=== PATIENT | male | born 1975 | race American Indian/Alaskan Native ===

== ENCOUNTER 2017-07-16 17:36 | Inpatient (IN) | payer MEDICAID, OTHER ==
[2017-07-16 17:36] VITALS: BMI 39.5
--- NOTE | 2017-07-16 18:04 | C.PDOC ---
History Of Present Illness 41 year old male with PMHx of HTN presents to the ED c/o sudden severe vision deterioration associated with headache that have been going on for the past 5 days. Patient states his symptoms occurred after taking the first dose of a blood pressure medication he does not recall the name of. Patient went to Dr. Connelly's office today was not evaluated but referred here for evaluation. PMD: Jinny Connelly Time Seen by Provider: 07/16/17 17:49 Chief Complaint (Nursing): Weakness/Neurological Deficit History Per: Patient History/Exam Limitations: no limitations Onset/Duration Of Symptoms: Days Current Symptoms Are (Timing): Still Present Associated Symptoms Preceding Syncopal Episode: No Predromal Symptoms (Sudden Onset) Seizure Or Post-ictal Symptoms: None Possible Causative Factor(s): New Medications Fall Associated With With Symptoms: No Recent travel outside of the [place]: No Additional History Per: Patient Past Medical History Reviewed: Historical Data, Nursing Documentation, Vital Signs Vital Signs: Last Vital Signs Temp 98.3 F 07/16/17 19:42 Pulse 71 07/16/17 19:42 Resp 20 07/16/17 19:42 BP 147/90 07/16/17 19:42 Pulse Ox 98 07/16/17 20:40 - Medical History PMH: HTN Denies: Chronic Kidney Disease Surgical History: No Surg Hx Family History: States: Unknown Family Hx - Social History Hx Alcohol Use: Yes Hx Substance Use: No - Immunization History Hx Tetanus Toxoid Vaccination: No Hx Influenza Vaccination: No Hx Pneumococcal Vaccination: No Review Of Systems Constitutional: Negative for: Fever, Chills Eyes: Positive for: Vision Change Cardiovascular: Negative for: Chest Pain, Palpitations Respiratory: Negative for: Shortness of Breath Gastrointestinal: Negative for: Abdominal Pain Skin: Negative for: Rash Neurological: Negative for: Weakness, Numbness Physical Exam - Physical Exam Appears: Non-toxic, No Acute Distress, Other (obese black male ) Skin: Normal Color, Warm, Dry Head: Atraumatic, Normacephalic Eye(s): bilateral: Other (Retinal exam normal; Complete loss of vision in the left visual landeros, consistent with left homonymous hemianopia) Nose: No Discharge Oral Mucosa: Moist Neck: Normal ROM, Supple Chest: Symmetrical Cardiovascular: Rhythm Regular, No Murmur Respiratory: Normal Breath Sounds, No Rales, No Rhonchi, No Wheezing Gastrointestinal/Abdominal: Soft, No Tenderness, No Guarding, No Rebound Extremity: Normal ROM, No Tenderness, No Swelling Neurological/Psych: Oriented x3, Normal Motor, Normal Sensation Gait: Steady ED Course And Treatment - Laboratory Results Result Diagrams: 07/16/17 18:01 07/16/17 18:01 O2 Sat by Pulse Oximetry: 98 (On RA) Pulse Ox Interpretation: Normal - Radiology CXR: Interpreted by Me, Viewed By Me CXR Interpretation: Yes: Cardiomegaly - CT Scan/US CT head Other Rad Studies (CT/US): Read By Radiologist, Radiology Report Reviewed CT/US Interpretation: IMPRESSION: No acute intracranial findings. Subacute infarction of the right CHARGE WEIGHER territory, no hemorrhagic. transformation. Chronic infarct of the right frontal temporal watershed region. No new episodes of. infarction site CTA Neck Other Rad Studies (CT/US): Read By Radiologist, Radiology Report Reviewed CT/US Interpretation: IMPRESSION: Unremarkable neck CTA. No carotid stenosis or occlusion. No thrombosis. Basilar artery and. vertebral arteries appear unremarkable. CT head/neck Other Rad Studies (CT/US): Read By Radiologist, Radiology Report Reviewed CT/US Interpretation: IMPRESSION: No aneurysm or acute occlusion. Partial thrombus or narrowing associate with the right proximal. CHARGE WEIGHER territory. Subacute infarction without hemorrhagic transformation right CHARGE WEIGHER territory. Chronic infarct of the right hemisphere frontal region as above. - Physician Consult Information Outcome Of Conversation: 1940: discussed w/ PMD sarah Shahid to admit. NIHSS Stroke Scale 2 - Date/Time Evaluation Performed Date Performed: 07/16/17 Time Performed: 18:00 - How Severe is the Stroke Level of Consciousness: 1=Drowsy LOC to commands: 0=Obeys both correctly Best Gaze: 0=Normal Visual: 2=Complete hemianopia Facial: 0=Normal Motor Arm - Left: 0=No drift Motor Arm - Right: 0=No drift Motor Leg - Left: 0=No drift Motor Leg - Right: 0=No drift Limb Ataxia: 0=Absent Sensory: 0=Normal Best Language: 0=No aphasia Dysarthia: 0=Normal articulation Extinction & Inattention (Neglect): 0=Normal, no object rTPA Inclusion/Exclusion - Refusal of Treatment Patient Refused Treatment: No - Inclusion Criteria for Altepase Patient is 18 years or Older: Yes The Clinical Diagnosis of Ischemic Stroke That is Causing a Potentially Disabling Neurological Deficit: Yes Time of Onset is Well Established to be Less Than 270 Minute Before Treatment Would Begin: No Risk/Benefit Discussed With Patient/Family Member Present: No - Exclusion Criteria for Altepase Uncontrolled Hypertension at Time of Treatment (Systolic BP above 185 or Diastolic BP above 110 mmHg): No Medical Decision Making Medical Decision Making: Initial Impression: visual deterioration Plan: * CT head * CT neck * EKG * Labs * CXR * IV fluids * UA Impression: subacute R CHARGE WEIGHER infarct- prob subacute from 5 days ago when pt had sudden JEAN and vision loss. 19:50 - Spoke with neurologist youth accommodation support worker Dr. Pa regarding the patient, informed her he will be admitted to Dr. Connelly' service. Disposition Doctor Will See Patient In The: Hospital Counseled Patient/Family Regarding: Studies Performed, Diagnosis - Disposition Disposition: HOSPITALIZED Disposition Time: 19:46 Condition: GOOD - Clinical Impression Clinical Impression: Hx of ischemic right CHARGE WEIGHER stroke - Scribe Statement The provider has reviewed the documentation as recorded by the Scribjoanne Knight All medical record entries made by the Scribe were at my direction and personally dictated by me. I have reviewed the chart and agree that the record accurately reflects my personal performance of the history, physical exam, medical decision making, and the department course for this patient. I have also personally directed, reviewed, and agree with the discharge instructions and disposition.
[2017-07-16] MEDS ORDERED: Iodixanol 320 MG/ML 100 ML BOTTLE IV ONE (18:09)
[2017-07-16 18:10] LABS: BASO # 0.1 K/uL (0.0-0.2); EOS # 0.1 K/uL (0.0-0.7); EOS % 1.5 % (0.0-4.0); HEMOGLOBIN 13.7 g/dL (12.0-18.0); LYMPH # 1.6 K/uL (1.0-4.3); LYMPH % 30.4 % (20.0-40.0); MEAN CELL VOLUME 83.7 fL (80.0-94.0); MEAN CORPUSCULAR HEMOGLOBIN 27.2 pg (27.0-31.0); MEAN CORPUSCULAR HGB CONC 32.5 g/dL (33.0-37.0); MEAN PLATELET VOLUME 7.9 fL (7.2-11.7); MONO # 0.5 K/uL (0.0-0.8); MONO % 8.8 % (0.0-10.0); NEUT % 58.3 % (50.0-75.0); NRBC % 0.1 % (0.0-2.0); RBC 5.03 Mil/uL (4.40-5.90); RED CELL DISTRIBUTION WIDTH 13.2 % (11.5-14.5); WHITE BLOOD COUNT 5.2 K/uL (4.8-10.8)
[2017-07-16 18:13] LABS: PROTHROMBIN TIME 11.3 SECONDS (9.7-12.2)
[2017-07-16 18:16] LABS: ALB/GLOB RATIO 1.1 (1.0-2.1); ALBUMIN 3.8 g/dL (3.5-5.0); ALT/SGPT 18 U/L (21-72); AST/SGOT 17 U/L (17-59); BLOOD UREA NITROGEN 12 mg/dL (9-20); CALCIUM 8.6 mg/dl (8.6-10.4); GFR AFRICAN-AMERICAN > 60; GFR NON-AFRICAN AMERICAN 56; HDL CHOLESTEROL 35 mg/dL (30-70)
[2017-07-16 18:27] LABS: LDL CHOLESTEROL 79 mg/dL (0-129)
[2017-07-16 18:39] LABS: URINE BILIRUBIN NEGATIVE (NEGATIVE); URINE BLOOD NEGATIVE (NEGATIVE); URINE CLARITY Clear (Clear); URINE COLOR Yellow (YELLOW); URINE GLUCOSE (UA) 1+ mg/dL (Normal); URINE LEUKOCYTE ESTERASE NEG Leu/uL (Negative); URINE PROTEIN NEGATIVE (NEGATIVE); URINE UROBILINOGEN NORMAL mg/dL (0.2-1.0)
[2017-07-16 18:50] LABS: BARBITURATES, UR NEGATIVE (NEGATIVE); BENZODIAZEPINES, UR NEGATIVE (NEGATIVE); OPIATES, UR NEGATIVE (NEGATIVE)
[2017-07-16] MEDS ORDERED: Sodium Chloride 0.9% 1,000 ML ONE (18:56)
[2017-07-16] MEDS: Sodium Chloride 0.9% 1,000 ML IV SCH (19:00)
[2017-07-16 19:12] LABS: PHENCYCLIDINE, UR NEGATIVE (NEGATIVE)
[2017-07-17] MEDS: Sodium Chloride 0.9% 1,000 ML IV SCH (02:44)
--- NOTE | 2017-07-17 09:37 | CP.PCM.CON ---
History of Present Illness - History of Present Illness History of Present Illness: 41 yr old male with no known pmh who came in to [facility], with chief complaint of headache and blurriness of vision for several days. Headache is frontal, 8/10 with no photophobia, no vomiting, and has been present for several days. 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 PMH/PSH: as above, no known past medical history noted. FH/SH: non contributory All: nkda. on exam: AAOX3 .pupils 3mm-2mm with light. EOMI. no nystagmus. Cn 2-12 normal. no gaze preference. left facial droop. tongue midline. motor: left mild drift. gait normal. sensory: normal, no deficits. mild left dysmetria. +2 dtr ul and ll bl. Toes downgoing, no clonus. Past Patient History - Infectious Disease Hx of Infectious Diseases: None - Past Medical History & Family History Past Medical History?: Yes - Past Social History Smoking Status: Current Some Days Smoker - CARDIAC Hx Cardiac Disorders: Yes Hx Hypertension: Yes - PULMONARY Hx Respiratory Disorders: No - NEUROLOGICAL Hx Neurological Disorder: No - HEENT Hx HEENT Problems: No - RENAL Hx Chronic Kidney Disease: No - ENDOCRINE/METABOLIC Hx Endocrine Disorders: Yes Hx Diabetes Mellitus Type 2: Yes - HEMATOLOGICAL/ONCOLOGICAL Hx Blood Disorders: No - INTEGUMENTARY Hx Dermatological Problems: Yes (CYST RT NECK) - MUSCULOSKELETAL/RHEUMATOLOGICAL Hx Musculoskeletal Disorders: No Hx Falls: No - GASTROINTESTINAL Hx Gastrointestinal Disorders: No - GENITOURINARY/GYNECOLOGICAL Hx Genitourinary Disorders: No - PSYCHIATRIC Hx Psychophysiologic Disorder: No Hx Substance Use: No - SURGICAL HISTORY Hx Surgeries: Yes Other/Comment: cyst removal from neck - ANESTHESIA Hx Anesthesia: Yes Meds Allergies/Adverse Reactions: Allergies Allergy/AdvReac Type Severity Reaction Status Date / Time No Known Allergies Allergy Verified 09/10/15 08:52 - Medications Medications: Current Medications Aspirin (Ecotrin) 325 mg PO DAILY [facility] Enoxaparin Sodium (Lovenox) 40 mg SC DAILY [facility] Home Med (Lisinopril/Hydrochlorothiazide [Lisinopril-Hctz 20-25 Mg Tab]) 1 tab PO DAILY [facility] Sodium Chloride (Sodium Chloride 0.9%) 1,000 mls @ 100 mls/hr IV .Q10H [facility] Last Admin: 07/17/17 02:44 Dose: 100 mls/hr Pneumococcal Polyvalent Vaccine (Pneumovax 23 Vaccine) 0.5 ml IM .ONCE ONE Stop: 07/18/17 10:01 Rosuvastatin Calcium (Crestor) 10 mg PO HS [facility] Last Admin: 07/16/17 22:29 Dose: 10 mg Results - Vital Signs Recent Vital Signs: Last Vital Signs Temp 98.0 F 07/17/17 07:55 Pulse 60 07/17/17 07:56 Resp 18 07/17/17 07:55 BP 127/72 07/17/17 07:55 Pulse Ox 97 07/17/17 07:55 - Labs Result Diagrams: 07/16/17 18:01 07/16/17 18:01 Labs: Laboratory Results - last 24 hr 07/16/17 07/16/17 07/16/17 17:46 18:01 18:01 WBC 5.2 RBC 5.03 Hgb 13.7 Hct 42.1 MCV 83.7 MCH 27.2 MCHC 32.5 L RDW 13.2 Plt Count 222 MPV 7.9 Neut % (Auto) 58.3 Lymph % (Auto) 30.4 [place] % (Auto) 8.8 Eos % (Auto) 1.5 Baso % (Auto) 1.0 Neut # (Auto) 3.0 Lymph # (Auto) 1.6 [place] # (Auto) 0.5 Eos # (Auto) 0.1 Baso # (Auto) 0.1 PT 11.3 INR 1.0 APTT 31 Sodium Potassium Chloride Carbon Dioxide Anion Gap BUN Creatinine Est GFR ( Amer) Est GFR (Non-Af Amer) POC Glucose (mg/dL) 155 H Random Glucose Hemoglobin A1c Calcium Total Bilirubin AST ALT Alkaline Phosphatase Troponin I Total Protein Albumin Globulin Albumin/Globulin Ratio Triglycerides Cholesterol LDL Cholesterol Direct HDL Cholesterol Urine Color Urine Clarity Urine pH Ur Specific [place] Urine Protein Urine Glucose (UA) Urine Ketones Urine Blood Urine Nitrate Urine Bilirubin Urine Urobilinogen Ur Leukocyte Esterase Urine WBC (Auto) Urine RBC (Auto) Urine Opiates Screen Urine Methadone Screen Ur Barbiturates Screen Ur Phencyclidine Scrn Ur Amphetamines Screen U Benzodiazepines Scrn U Oth Cocaine Metabols U Cannabinoids Screen 07/16/17 07/16/17 07/16/17 18:01 18:01 18:29 WBC RBC Hgb Hct MCV MCH MCHC RDW Plt Count MPV Neut % (Auto) Lymph % (Auto) [place] % (Auto) Eos % (Auto) Baso % (Auto) Neut # (Auto) Lymph # (Auto) [place] # (Auto) Eos # (Auto) Baso # (Auto) PT INR APTT Sodium 140 Potassium 4.2 Chloride 103 Carbon Dioxide 25 Anion Gap 17 BUN 12 Creatinine 1.4 Est GFR ( Amer) > 60 Est GFR (Non-Af Amer) 56 POC Glucose (mg/dL) Random Glucose 168 H Hemoglobin A1c 7.9 H Calcium 8.6 Total Bilirubin 0.4 AST 17 ALT 18 L Alkaline Phosphatase 73 Troponin I < 0.0120 Total Protein 7.2 Albumin 3.8 Globulin 3.4 Albumin/Globulin Ratio 1.1 Triglycerides 86 Cholesterol 130 LDL Cholesterol Direct 79 HDL Cholesterol 35 Urine Color Yellow Urine Clarity Clear Urine pH 5.0 Ur Specific [place] 1.019 Urine Protein Negative Urine Glucose (UA) 1+ H Urine Ketones Negative Urine Blood Negative Urine Nitrate Negative Urine Bilirubin Negative Urine Urobilinogen Normal Ur Leukocyte Esterase Neg Urine WBC (Auto) < 1 Urine RBC (Auto) < 1 Urine Opiates Screen Urine Methadone Screen Ur Barbiturates Screen Ur Phencyclidine Scrn Ur Amphetamines Screen U Benzodiazepines Scrn U Oth Cocaine Metabols U Cannabinoids Screen 07/16/17 07/17/17 18:29 06:07 WBC RBC Hgb Hct MCV MCH MCHC RDW Plt Count MPV Neut % (Auto) Lymph % (Auto) [place] % (Auto) Eos % (Auto) Baso % (Auto) Neut # (Auto) Lymph # (Auto) [place] # (Auto) Eos # (Auto) Baso # (Auto) PT INR APTT Sodium Potassium Chloride Carbon Dioxide Anion Gap BUN Creatinine Est GFR ( Amer) Est GFR (Non-Af Amer) POC Glucose (mg/dL) 116 H Random Glucose Hemoglobin A1c Calcium Total Bilirubin AST ALT Alkaline Phosphatase Troponin I Total Protein Albumin Globulin Albumin/Globulin Ratio Triglycerides Cholesterol LDL Cholesterol Direct HDL Cholesterol Urine Color Urine Clarity Urine pH Ur Specific [place] Urine Protein Urine Glucose (UA) Urine Ketones Urine Blood Urine Nitrate Urine Bilirubin Urine Urobilinogen Ur Leukocyte Esterase Urine WBC (Auto) Urine RBC (Auto) Urine Opiates Screen Negative Urine Methadone Screen Negative Ur Barbiturates Screen Negative Ur Phencyclidine Scrn Negative Ur Amphetamines Screen Negative U Benzodiazepines Scrn Negative U Oth Cocaine Metabols Negative U Cannabinoids Screen Negative Assessment & Plan - Assessment and Plan (Free Text) Assessment: 41 yr old male with multiple 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 I suspect he may have carotid disease, but will conduct full stroke workup. PLan: 1. Lipid profile normal..no statins. 2. Echo with bubble study. 3. physical therapy 4. start aspirin 325 mg po daily. 5. Control blood pressure 6. antithrombin 3, fibrinogen, factor 5 leiden, 7 .MRi Brain without alexis. Thank you for this interesting consult. MD Ann, DPN
[2017-07-17] MEDS ORDERED: Enoxaparin 150 mg Syringe SC SCH (10:00)
[2017-07-17] MEDS ORDERED: LISINOPRIL PO SCH (10:00)
[2017-07-17] MEDS ORDERED: HYDROCHLOROTHIAZIDE PO SCH (10:00)
[2017-07-17] MEDS ORDERED: Aspirin 325 mg EC Tablets PO SCH (10:00)
[2017-07-17] MEDS ORDERED: METFORMIN PO SCH (10:00)
[2017-07-17] MEDS: Enoxaparin 40 mg Syringe SC SCH (10:19)
--- NOTE | 2017-07-17 10:51 | CT ---
PROCEDURE: CT HEAD WITHOUT CONTRAST. HISTORY: JEAN, vision deterioration x 3 days COMPARISON: None available. TECHNIQUE: Axial computed tomography images were obtained through the head/brain without intravenous contrast. Radiation dose: Total exam DLP = 995.80 mGy-cm. This CT exam was performed using one or more of the following dose reduction techniques: Automated exposure control, adjustment of the mA and/or kV according to patient size, and/or use of iterative reconstruction technique. FINDINGS: HEMORRHAGE: No intracranial hemorrhage. BRAIN: No mass effect or edema. Probable subacute infarct right ELECTRONIC GLUING MACHINE OPERATOR territory involving the occipital lobe extending to the posterior temporal lobe. Old right frontotemporal/perisylvian infarct with encephalomalacia change. VENTRICLES: Unremarkable. No hydrocephalus. CALVARIUM: Unremarkable. PARANASAL SINUSES: Unremarkable as visualized. No significant inflammatory changes. MASTOID AIR CELLS: Unremarkable as visualized. No inflammatory changes. OTHER FINDINGS: None. IMPRESSION: Subacute right ELECTRONIC GLUING MACHINE OPERATOR territory infarcts. Old right frontotemporal perisylvian infarct with encephalomalacia change. No intracranial hemorrhage. Preliminary interpretation of this examination was reported by [facility] at 7:17 p.m. on 07/16/2017. There is concurrence of this report with the preliminary interpretation.
--- NOTE | 2017-07-17 11:12 | CARD ---
APPROVED REPORT EKG Measurement Heart [id number] <Conclusion> Normal sinus rhythm Normal ECG
--- NOTE | 2017-07-17 11:22 | CP.PCM.PN ---
Subjective - Date & Time of Evaluation Date of Evaluation: 07/17/17 Time of Evaluation: 09:10 - Subjective Subjective: Medicine progress note for Dr. Connelly's service: Patient seen and examined. Patient is a 41 year old male with PMHx HTN and diabetes who presented to the ED in the evening of 07/16/17 with complaint of headache and blurred vision for five days duration. Patient states he has been compliant with blood pressure medication. Patient states blurred vision is improved with movement. Patient also reports right-sided headache that is improving. Patient denies nausea or vomiting, sensitivity to light, neck pain or stiffness. Objective - Vital Signs/Intake and Output Vital Signs (last 24 hours): Temp Pulse Resp BP Pulse Ox 98.0 F 60 18 127/72 97 07/17/17 07:55 07/17/17 07:56 07/17/17 07:55 07/17/17 07:55 07/17/17 07:55 - Medications Medications: Current Medications Aspirin (Ecotrin) 325 mg PO DAILY [facility] Last Admin: 07/17/17 10:19 Dose: 325 mg Enoxaparin Sodium (Lovenox) 40 mg SC DAILY [facility] Last Admin: 07/17/17 10:19 Dose: 40 mg Hydrochlorothiazide (Hydrodiuril) 25 mg PO DAILY [facility] Last Admin: 07/17/17 10:19 Dose: 25 mg Lisinopril (Zestril) 20 mg PO DAILY [facility] Last Admin: 07/17/17 10:19 Dose: 20 mg Pneumococcal Polyvalent Vaccine (Pneumovax 23 Vaccine) 0.5 ml IM .ONCE ONE Stop: 07/18/17 10:01 Rosuvastatin Calcium (Crestor) 10 mg PO [facility] Last Admin: 07/16/17 22:29 Dose: 10 mg - Labs Labs: 07/16/17 18:01 07/16/17 18:01 PT 11.3 SECONDS (9.7-12.2) 07/16/17 18:01 INR 1.0 07/16/17 18:01 APTT 31 SECONDS (21-34) 07/16/17 18:01 - Constitutional Appears: Non-toxic, No Acute Distress - Head Exam Head Exam: ATRAUMATIC, NORMOCEPHALIC - Eye Exam Eye Exam: EOMI. absent: Nystagmus Pupil Exam: PERRL - ENT Exam ENT Exam: Mucous Membranes Moist - Respiratory Exam Respiratory Exam: Clear to Ausculation Bilateral, NORMAL BREATHING PATTERN - Cardiovascular Exam Cardiovascular Exam: +S1, +S2 - GI/Abdominal Exam GI & Abdominal Exam: Soft, Normal Bowel Sounds. absent: Tenderness - Extremities Exam Extremities Exam: Normal Inspection - Neurological Exam Neurological Exam: Alert, Awake, Oriented x3 Additional comments: mild droop left corner of mouth intact and equal sensation to face, upper and lower extremities left sided visual landeros deficit by confrontation Level of Consciousness: 0=Alert LOC to commands: 0=Obeys both correctly Best Gaze: 0=Normal Visual: 2=Complete left hemianopia Facial: 1=Minor Motor Arm - Left: 0=No drift Motor Arm - Right: 0=No drift Motor Leg - Left: 0=No drift Motor Leg - Right: 0=No drift Limb Ataxia: 0=Absent Sensory: 0=Normal Best Language: 0=No aphasia Dysarthia: 0=Normal articulation Extinction & Inattention (Neglect): 0=Normal, no object NIH score: 3, minor - Psychiatric Exam Psychiatric exam: Normal Affect - Skin Skin Exam: Warm Assessment and Plan - Assessment and Plan (Free Text) Assessment: 1. Right Subacute MANAGER TRAVEL Infarct Dr. Pa, neurology, consulted- help appreciated recommend MRI brain, hypercoaguable workup, echo with bubble study, PT, asa 325mg, BP control CT head: No acute intracranial findings. Subacute infarction of the right MANAGER TRAVEL territory, no hemorrhagic. transformation. 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 No carotid stenosis or occlusion. No thrombosis. Basilar artery and. vertebral arteries appear unremarkable. No aneurysm or acute occlusion. Partial thrombus or narrowing associate with the right proximal. MANAGER TRAVEL territory. Subacute infarction without hemorrhagic transformation right MANAGER TRAVEL territory. Chronic infarct of the right hemisphere frontal region as above. (see full report) Lipid panel: Triglycerides 86, Cholesterol 130, LDL 79, HDL 35 Patient on crestor 10mg PO HS, aspirin 325mg carotid duplex ordered to further evaluate carotid disease 2. HTN patient on lisinopril 20mg, HCTZ 25mg will continue to monitor and adjust medication if necessary 3. Diabetes A1c 7.9 patient takes metformin 1000mg PO BID- held due to IV contrast ISS accuchecks achs hypoglycemia protocol 4. Prophylactic measure SCDs lovenox 40mg SC daily PT- recommend acute rehab All medical management as per Dr. Connelly
--- NOTE | 2017-07-17 11:30 | CT ---
PROCEDURE: CT Angiography of the Brain. HISTORY: severe deterioration of vision and JEAN x 4 days COMPARISON: None available. TECHNIQUE: CT angiography of the intracranial and cervical arteries was performed. Coronal and sagittal maximum intensity projection reformatted images were generated. Contrast Dose: Visipaque 320, 100 cc Radiation dose:Total exam DLP = 1401.53 MGy-cm. This CT exam was performed using one or more of the following dose reduction techniques: Automated exposure control, adjustment of the mA and/or kV according to patient size, and/or use of iterative reconstruction technique. FINDINGS: INTERNAL CEREBRAL ARTERIES: Unremarkable. The skull base, petrous, cavernous and supraclinoid segments are bilaterally widely patent. ANTERIOR CEREBRAL ARTERIES: Unremarkable. A1 and A2 segments are widely patent. Smaller distal branches unremarkable, as visualized. MIDDLE CEREBRAL ARTERIES: Unremarkable. M1 and M2 segments are widely patent. Perisylvian branches grossly symmetric. POSTERIOR CIRCULATION: Basilar Artery: Unremarkable. Distal Vertebral Arteries: Unremarkable. Posterior Cerebral Arteries: A segmental stenosis of the P1 right FASHION COORDINATOR is difficult to differentiate from limited hypoplasia. Posterior Inferior Cerebellar Arteries: Unremarkable. NECK CTA: Common Carotid arteries: The bilateral common carotid appear widely patent from their origins to their bifurcations with no significant stenosis appreciated. No evidence to suggest common carotid artery dissection. Internal Carotid arteries: No significant stenosis is appreciated throughout the cervical internal carotid artery segments bilaterally and there is no evidence of dissection either. External Carotid arteries: Appear unremarkable bilaterally. Vertebral arteries: The bilateral vertebral arteries appear normal in caliber from their origins to their junction with the basilar artery. No significant stenosis or definite pattern of dissection. ANEURYSM/ VASCULAR MALFORMATIONS: None. OTHER FINDINGS: Acute to subacute infarct right FASHION COORDINATOR distribution identified involving the inferior right temporooccipital region. Chronic lobar infarction right frontal lobe. IMPRESSION: Segmental stenosis of the P1 right FASHION COORDINATOR is difficult to differentiate from limited hypoplasia with the remainder of the intracranial circulation unremarkable appearing. Unremarkable neck CT angiogram as per above.
--- NOTE | 2017-07-17 11:52 | RAD ---
HISTORY: Code Stroke COMPARISON: No prior. FINDINGS: LUNGS: No active pulmonary disease. PLEURA: No significant pleural effusion identified, no pneumothorax apparent. CARDIOVASCULAR: Normal. OSSEOUS STRUCTURES: No significant abnormalities. VISUALIZED UPPER ABDOMEN: Normal. OTHER FINDINGS: None. IMPRESSION: No active disease.
--- NOTE | 2017-07-17 13:47 | MRI ---
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 FINDINGS: HEMORRHAGE: None DWI: Acute infarcts are seen in the distribution of the right posterior cerebral artery. The infarcts involve the right medial occipital and temporal lobes as well as the posterior thalamus. There is a small lacunar infarct in the right cerebellar hemisphere BRAIN PARENCHYMA: No mass effect or edema. There is focal atrophy and encephalomalacia in the right frontal lobe VENTRICLES: Unremarkable. No hydrocephalus. CRANIUM: Unremarkable. ORBITS: Grossly unremarkable. PARANASAL SINUSES/MASTOIDS: Clear VASCULAR SYSTEM: Skull base flow voids intact. OTHER FINDINGS: None. IMPRESSION: Acute infarcts are seen in the distribution of the right posterior cerebral artery. The infarcts involve the right medial occipital and temporal lobes as well as the posterior thalamus. There is also a small lacunar infarct in the right cerebellar hemisphere
[2017-07-17] MEDS ORDERED: Dextrose 50% SYRINGE Inj (50 ml) IVP PRN (15:07)
[2017-07-17] MEDS ORDERED: Glucagon Recombinant 1 mg Inj IM PRN (15:07)
[2017-07-17] MEDS: (Novolog) Insulin Aspart, Recombinant 100 u/ml 10 ml vial SC SCH ×2 (16:52→21:23)
--- NOTE | 2017-07-18 07:00 | CP.PCM.PN ---
Subjective - Date & Time of Evaluation Date of Evaluation: 07/18/17 Time of Evaluation: 06:59 - Subjective Subjective: Mr. Hampton was seen and examined at the bedside. He is alert, oriented in all spheres. He denies any headache, dizziness, lightheadedness, blurred vision, diplopia, nausea, or vomiting. He is able to follow simple commands with mild facial droop. He attempted to smoke early this morning, per patient he got disoriented where he was and took a cigarette. He also refused am blood work. Spoke to the patient regarding the importance of blood works in regards with his treatment. He agreed to do it this am at 10:00. MRI of the brain showed acute infarction seen in the distribution of the right posterior cerebral artery. The infarcts involve the right medial occipital and temporal lobes as well as the posterior thalamus. There is a small lacunar infarct in the right cerebellar hemisphere. Objective - Vital Signs/Intake and Output Vital Signs (last 24 hours): Temp Pulse Resp BP Pulse Ox 98.0 F 63 20 138/82 99 07/17/17 23:35 07/17/17 23:35 07/17/17 23:35 07/17/17 23:35 07/17/17 23:35 Intake and Output: 07/17/17 07/18/17 18:59 06:59 Intake Total 300 Balance 300 - Medications Medications: Current Medications Acetaminophen (Tylenol 325mg Tab) 650 mg PO Q6 PRN PRN Reason: Pain, Mild (1-3) Last Admin: 07/17/17 16:17 Dose: 650 mg Aspirin (Ecotrin) 325 mg PO DAILY [facility] Last Admin: 07/17/17 10:19 Dose: 325 mg Dextrose (Dextrose 50% Inj) 0 ml IVP .STAT PRN; Protocol PRN Reason: Hypoglycemia Protocol Dextrose (Glutose 15) 0 gm PO .ONCE PRN; Protocol PRN Reason: Hypoglycemia Protocol Enoxaparin Sodium (Lovenox) 40 mg SC DAILY [facility] Last Admin: 07/17/17 10:19 Dose: 40 mg Glucagon (Glucagen Diagnostic Kit) 0 mg IM .STAT PRN; Protocol PRN Reason: Hypoglycemia Protocol Hydrochlorothiazide (Hydrodiuril) 25 mg PO DAILY [facility] Last Admin: 07/17/17 10:19 Dose: 25 mg Dextrose (Dextrose 5% In Water 1000 Ml) 1,000 mls @ 0 mls/hr IV .Q0M PRN; Protocol; Per Protocol PRN Reason: Hypoglycemia Protocol Insulin Aspart (Novolog) 0 unit SC ACHS [facility] PRN Reason: Protocol Last Admin: 07/17/17 21:23 Dose: Not Given Lisinopril (Zestril) 20 mg PO DAILY [facility] Last Admin: 07/17/17 10:19 Dose: 20 mg Pneumococcal Polyvalent Vaccine (Pneumovax 23 Vaccine) 0.5 ml IM .ONCE ONE Stop: 07/18/17 10:01 - Labs Labs: 07/16/17 18:01 07/16/17 18:01 PT 11.3 SECONDS (9.7-12.2) 07/16/17 18:01 INR 1.0 07/16/17 18:01 APTT 31 SECONDS (21-34) 07/16/17 18:01 - Constitutional Appears: No Acute Distress - Head Exam Head Exam: NORMAL INSPECTION - Neurological Exam Neurological Exam: Alert, Awake, Oriented x3 Neuro motor strength exam: Left Upper Extremity: 5, Right Upper Extremity: 5, Left Lower Extremity: 5, Right Lower Extremity: 5 Additional comments: He is alert, with mild facial droop. He is able to follow simple commands and sensation is intact. Assessment and Plan (1) Ischemic stroke Assessment & Plan: Case discussed with Dr. Pa, continue all current medical therapy. Recommend PT , OT, and speech therapies. Pending echocardiogram. Statin ( Crestor) was discontinue due to his LDL within normal limits. Recommend plavix 75 mg PO daily. Recommend blood pressure and glycemic control. Status: Acute
--- NOTE | 2017-07-18 07:47 | CP.PCM.PN ---
Subjective - Date & Time of Evaluation Date of Evaluation: 07/18/17 Time of Evaluation: 07:46 - Subjective Subjective: PGY2 progress note for Dr. Connelly's service: Patient seen and examined at bedside with attending Dr. Connelly. Patient found standing at foot of bed agitated. Nursing reports pt hearing voices this morning , when asked patient states "the voices outside in the hallway are conspiring against me." Patient admits history of "seeing counselors" for mental illness at center in [place]. He denies previous psychiatric medication. Objective - Vital Signs/Intake and Output Vital Signs (last 24 hours): Temp Pulse Resp BP Pulse Ox 98.0 F 63 20 138/82 99 07/17/17 23:35 07/17/17 23:35 07/17/17 23:35 07/17/17 23:35 07/17/17 23:35 - Medications Medications: Current Medications Acetaminophen (Tylenol 325mg Tab) 650 mg PO Q6 PRN PRN Reason: Pain, Mild (1-3) Last Admin: 07/17/17 16:17 Dose: 650 mg Aspirin (Ecotrin) 325 mg PO DAILY [facility] Last Admin: 07/17/17 10:19 Dose: 325 mg Clopidogrel Bisulfate (Plavix) 75 mg PO DAILY [facility] Dextrose (Dextrose 50% Inj) 0 ml IVP .STAT PRN; Protocol PRN Reason: Hypoglycemia Protocol Dextrose (Glutose 15) 0 gm PO .ONCE PRN; Protocol PRN Reason: Hypoglycemia Protocol Enoxaparin Sodium (Lovenox) 40 mg SC DAILY [facility] Last Admin: 07/17/17 10:19 Dose: 40 mg Glucagon (Glucagen Diagnostic Kit) 0 mg IM .STAT PRN; Protocol PRN Reason: Hypoglycemia Protocol Hydrochlorothiazide (Hydrodiuril) 25 mg PO DAILY [facility] Last Admin: 07/17/17 10:19 Dose: 25 mg Dextrose (Dextrose 5% In Water 1000 Ml) 1,000 mls @ 0 mls/hr IV .Q0M PRN; Protocol; Per Protocol PRN Reason: Hypoglycemia Protocol Insulin Aspart (Novolog) 0 unit SC ACHS [facility] PRN Reason: Protocol Last Admin: 07/17/17 21:23 Dose: Not Given Lisinopril (Zestril) 20 mg PO DAILY [facility] Last Admin: 07/17/17 10:19 Dose: 20 mg Pneumococcal Polyvalent Vaccine (Pneumovax 23 Vaccine) 0.5 ml IM .ONCE ONE Stop: 07/18/17 10:01 - Labs Labs: 07/16/17 18:01 07/16/17 18:01 PT 11.3 SECONDS (9.7-12.2) 07/16/17 18:01 INR 1.0 07/16/17 18:01 APTT 31 SECONDS (21-34) 07/16/17 18:01 - Additional Findings Additional findings: - Constitutional Appears: Non-toxic, No Acute Distress, Agitated - Head Exam Head Exam: ATRAUMATIC, NORMOCEPHALIC - Eye Exam Eye Exam: EOMI. absent: Nystagmus Pupil Exam: PERRL - ENT Exam ENT Exam: Mucous Membranes Moist - Respiratory Exam Respiratory Exam: Clear to Ausculation Bilateral, NORMAL BREATHING PATTERN - Cardiovascular Exam Cardiovascular Exam: +S1, +S2 - GI/Abdominal Exam GI & Abdominal Exam: Soft, Normal Bowel Sounds. absent: Tenderness - Extremities Exam Extremities Exam: Normal Inspection - Neurological Exam Neurological Exam: Alert, Awake, Oriented x3 Additional comments: mild droop left corner of mouth intact and equal sensation to face, upper and lower extremities Muscle strength 5/5 in upper extremities left sided visual landeros deficit by confrontation normal gait- no ataxia appreciated Assessment and Plan - Assessment and Plan (Free Text) Plan: 1. Right Subacute INK PRINTER Infarct Dr. Pa, neurology, consulted- help appreciated recommend MRI brain, hypercoaguable workup, echo with bubble study, PT, asa 325mg, BP control CT head: No acute intracranial findings. Subacute infarction of the right INK PRINTER territory, no hemorrhagic. transformation. 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 No carotid stenosis or occlusion. No thrombosis. Basilar artery and. vertebral arteries appear unremarkable. No aneurysm or acute occlusion. Partial thrombus or narrowing associate with the right proximal. INK PRINTER territory. Subacute infarction without hemorrhagic transformation right INK PRINTER territory. Chronic infarct of the right hemisphere frontal region as above. (see full report) Lipid panel: Triglycerides 86, Cholesterol 130, LDL 79, HDL 35 Patient on crestor 10mg PO HS, aspirin 325mg carotid duplex not suggestive of significant stenosis of either carotid artery 2. Paranoia/Agitation Pt admits hearing voices in hallway conspiring against him Denies history of psych medication, but admits seeing mental health counselors Psych consult, Dr. Redd - f/u reccs Ativan 1mg IV Q6H PRN for agitation 3. HTN patient on lisinopril 20mg, HCTZ 25mg will continue to monitor and adjust medication if necessary 4/4: Pt with HTN episode this afternoon; 180/110 - given stat Hydralazine 25mg PO ONCE - if persistently elevated, will consider increasing meds 4. Diabetes A1c 7.9 patient takes metformin 1000mg PO BID- held due to IV contrast ISS accuchecks achs hypoglycemia protocol 5. Prophylactic measure SCDs lovenox 40mg SC daily PT- recommend acute rehab All medical management as per Dr. Connelly
[2017-07-18] MEDS: (Novolog) Insulin Aspart, Recombinant 100 u/ml 10 ml vial SC SCH ×4 (07:54→21:24)
--- NOTE | 2017-07-18 08:05 | HP ---
HISTORY OF PRESENT ILLNESS: The patient presented to the hospital with chief complaint of dizziness, weakness, with low blood pressure. Patient , hypertension, and diabetes. PHYSICAL EXAMINATION GENERAL: The patient is awake, alert, oriented. VITAL SIGNS: Temperature 98, pulse 90. HEENT: Within normal limits. NECK: Supple. CHEST: Symmetrical. HEART: Regular. ABDOMEN: Soft. EXTREMITIES: No edema. IMPRESSION: Suffers from cerebrovascular accident, subacute. PLAN: The patient at this point is at bedrest. We will get Neurology consult. Jair Connelly MD
--- NOTE | 2017-07-18 08:43 | VASCLAB ---
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 TECHNIQUE: Grayscale and duplex Doppler evaluation of the cervical carotid and vertebral arteries were performed. The common carotid, carotid bifurcations and cervical Internal Carotid Artery (ICA) and proximal External Carotid Artery (ECA) were evaluated. The vertebral arteries were evaluated for gross patency and flow direction. Report prepared by Hans Cruz, BS, RVT FINDINGS: RIGHT CAROTID ARTERIES: 1. Common Carotid Artery: No significant focal plaque formation of the right common carotid artery. Maximum Peak Systolic velocity: 105 cm/sec: End-diastolic velocity 27 cm/sec. 2. Carotid Bifurcation: plaque formation. Maximum Peak Systolic velocity: 92 cm/sec: End-diastolic velocity 21 cm/sec. 3. Internal Carotid Artery: Plaque description: 3.1. Proximal Segment: Peak systolic velocity 74 cm/sec: End-diastolic velocity 28 cm/sec - % stenosis 0-15% 3.2. Middle Segment: Peak systolic velocity 98 cm/sec: End-diastolic velocity 38 cm/sec - % stenosis 0-15% 3.3. Distal Segment: Peak systolic velocity 65 cm/sec: End-diastolic velocity 27 cm/sec - % stenosis 0-15% 4. External Carotid Artery: No significant focal plaque formation. Peak systolic velocity 83 cm/sec 5. ICA/CCA Ratio: 0.9 LEFT CAROTID ARTERIES: 1. Common Carotid Artery: No significant focal plaque formation of the left common carotid artery. Maximum Peak Systolic velocity: 94 cm/sec: End-diastolic velocity 25 cm/sec. 2. Carotid Bifurcation: plaque formation. Maximum Peak Systolic velocity: 76 cm/sec: End-diastolic velocity 27 cm/sec. 3. Internal Carotid Artery: Plaque description: 3.1. Proximal Segment: Peak systolic velocity 81 cm/sec: End-diastolic velocity 25 cm/sec - % stenosis 0-15% 3.2. Middle Segment: Peak systolic velocity 88 cm/sec: End-diastolic velocity 31 cm/sec - % stenosis 0-15% 3.3. Distal Segment: Peak systolic velocity 82 cm/sec: End-diastolic velocity 34 cm/sec - % stenosis 0-15% 4. External Carotid Artery: No significant focal plaque formation. Peak systolic velocity 109 cm/sec 5. ICA/CCA Ratio: 0.9 VERTEBRAL ARTERIES: 1. Right Vertebral Artery: The right vertebral artery flow direction is antegrade. 2. Left Vertebral Artery: The left vertebral artery flow direction is antegrade. OTHER FINDINGS: 1. Right Brachial Blood pressure: 150 mmHg. 2. Left Brachial Blood pressure: 142 mmHg. IMPRESSION: RIGHT: Duplex scan does not suggest hemodynamically significant stenosis of the right extracranial carotid arteries. LEFT: Duplex scan does not suggest hemodynamically significant stenosis of the left extracranial carotid arteries.
[2017-07-18] MEDS: Enoxaparin 40 mg Syringe SC SCH (09:58)
[2017-07-18] MEDS ORDERED: Pneumococcal 23-Valent Vaccine IM ONE (10:00)
[2017-07-18 13:57] LABS: BASO # 0.1 K/uL (0.0-0.2); BASO % 0.9 % (0.0-2.0); EOS # 0.1 K/uL (0.0-0.7); HEMOGLOBIN 14.3 g/dL (12.0-18.0); LYMPH # 1.4 K/uL (1.0-4.3); LYMPH % 25.3 % (20.0-40.0); MEAN CELL VOLUME 82.9 fL (80.0-94.0); MEAN CORPUSCULAR HEMOGLOBIN 28.1 pg (27.0-31.0); MEAN CORPUSCULAR HGB CONC 33.9 g/dL (33.0-37.0); MEAN PLATELET VOLUME 8.4 fL (7.2-11.7); MONO # 0.4 K/uL (0.0-0.8); MONO % 7.8 % (0.0-10.0); NEUT # 3.6 K/uL (1.8-7.0); NRBC % 0.2 % (0.0-2.0); RBC 5.09 Mil/uL (4.40-5.90); RED CELL DISTRIBUTION WIDTH 13.3 % (11.5-14.5); WHITE BLOOD COUNT 5.6 K/uL (4.8-10.8)
[2017-07-18 14:00] LABS: ALB/GLOB RATIO 1.1 (1.0-2.1); ALBUMIN 4.3 g/dL (3.5-5.0); ALT/SGPT 12 U/L (21-72); AST/SGOT 22 U/L (17-59); BLOOD UREA NITROGEN 14 mg/dL (9-20); CALCIUM 9.3 mg/dl (8.6-10.4); GFR AFRICAN-AMERICAN > 60; GFR NON-AFRICAN AMERICAN > 60
--- NOTE | 2017-07-18 14:33 | PCM.PSYCH ---
Initial Psychiatric Evaluation - Initial Psychiatric Evaluation Type of Admission: Voluntary Legal Status: Capacity Chief Complaint (in patient's own words): Consulted for auditory hallucinations History of Present Illness and Precipitating Events: Patient is seen, chart reviewed, case discussed. This is a 41 year old male, who is employed and lives with family, who presented to ED for hypertension and blurry vision. During hospital stay, he was found to have had a cerebral infarct. Psychiatry was consulted by medicine because patient reports he is hearing people outside his room saying things to instigate a fight. Patient states he is not seeing anyone but hears this from outside his hospital room. Patient states this has happened outside the hospital as well. Patient denies suicidal/homicidal ideation, depression, anxiety, paranoia (but seemed paranoid), or psychiatric hospitalization. Patient states he sees a therapist but is not on any psychiatric medication. Patient has a past history of using illicit drugs but does not currently use. He states he consumes alcohol but does not have a "drinking problem." medical history: HTN, Diabetes Psych History: denies Social history: Lives with family and friends. Has two children, 5 and 9, who live with their mother. 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 He has history of incarceration for drug offense. Family Hx: denies Current Medications: Active Medications Generic Name Dose Route Start Last Admin Trade Name Freq PRN Reason Stop Dose Admin Acetaminophen 650 mg 07/17/17 14:01 07/18/17 14:21 Tylenol 325mg Tab PO 650 mg Q6 PRN Administration Pain, Mild (1-3) Aspirin 81 mg 07/18/17 10:00 07/18/17 09:58 Ecotrin PO 81 mg DAILY [facility] Administration Clopidogrel Bisulfate 75 mg 07/18/17 10:00 07/18/17 09:58 Plavix PO 75 mg DAILY [facility] Administration Dextrose 0 ml 07/17/17 15:07 Dextrose 50% Inj IVP .STAT PRN Hypoglycemia Protocol Protocol Dextrose 0 gm 07/17/17 15:07 Glutose 15 PO .ONCE PRN Hypoglycemia Protocol Protocol Enoxaparin Sodium 40 mg 07/17/17 10:00 07/18/17 09:58 Lovenox SC 40 mg DAILY [facility] Administration Glucagon 0 mg 07/17/17 15:07 Glucagen Diagnostic Kit IM .STAT PRN Hypoglycemia Protocol Protocol Hydrochlorothiazide 25 mg 07/17/17 10:00 07/18/17 09:58 Hydrodiuril PO 25 mg DAILY [facility] Administration Dextrose 1,000 mls @ 0 mls/hr 07/17/17 15:07 Dextrose 5% In Water 1000 Ml IV .Q0M PRN Hypoglycemia Protocol Protocol Per Protocol Insulin Aspart 0 unit 07/17/17 16:30 07/18/17 12:26 Novolog SC Not Given ACHS [facility] Protocol Lisinopril 20 mg 07/17/17 10:00 07/18/17 09:58 Zestril PO 20 mg DAILY [facility] Administration Past Psychiatric History - Past Psychiatric History Previous Treatment History: Intensive Outpatient Pertinent Medical Hx (Current Medical&Sleep Prob, Allergies): Allergies Allergy/AdvReac Type Severity Reaction Status Date / Time No Known Allergies Allergy Verified 09/10/15 08:52 Lisinopril/Hydrochlorothiazide [Lisinopril-Hctz 20-25 mg Tab] 1 tab PO DAILY Ciprofloxacin [Cipro] 1 tab PO BID 07/16/17 MetFORMIN [glucoPHAGE] 1 tab PO BID 07/16/17 Review of Systems - Review of Systems All systems: reviewed and no additional remarkable complaints except - Psychiatric Psychiatric: Auditory Hallucinations, Difficulty Concentrating, Hallucinations, Irritability, Mood Swings, Paranoia. absent: Anxiety, Depression, Hopelessness , Suicidal Ideation, Visual Hallucinations Mental Status Examination - Personal Presentation Personal Presentation: Looks older than stated age (odd) - Affect Affect: Constricted - Motor Activity Motor Activity: Calm - Reliability in Providing Information Reliability in Providing Information: Fair - Speech Speech: Organized - Mood Mood: Anxious - Formal Thought Process Formal Thought Process: Hallucinations, Paranoia - Hallucinations/Delusions Hallucinations: Auditory - Obsessions/Compulsions Obsessions: No Compulsions: No - Cognitive Functions Orientation: Person, Place, Situation Sensorium: Alert Estimate of Intelligence: Average Judgement: Imparied, as evidence by: Poor judgement Memory: Recent intact, as evidence by: Ability to recall events of the day, Remote impaired as evidenced by: Inability to recall sig life events - Risk Risk: Diminished functioning - Strength & Assets Inventory Strength & Assets Inventory: Cooperative - Limitations Limitations: Other DSM 5 DX - DSM 5 DSM 5 Diagnosis: Psychosis, unspecified - Recommended/Plan of Treatment Treatment Recommendations and Plan of Treatment: Pt is refusing meds and he has capacity to make medical decisions Risks of not taking meds discussed Psychoeducation and support Encourage compliance with meds and after care Continue outpatient program Teach healthy lifestyle methods, i.e. diet, exercise, meditation 32 min
[2017-07-18] MEDS ORDERED: Perflutren Lipid Microsphere 1.5 ML SUS IV ONE (15:02)
[2017-07-18 18:54] LABS: BARBITURATES, UR NEGATIVE (NEGATIVE); BENZODIAZEPINES, UR NEGATIVE (NEGATIVE); OPIATES, UR NEGATIVE (NEGATIVE); PHENCYCLIDINE, UR NEGATIVE (NEGATIVE)
--- NOTE | 2017-07-19 06:44 | CP.PCM.PN ---
Subjective - Date & Time of Evaluation Date of Evaluation: 07/19/17 Time of Evaluation: 06:44 - Subjective Subjective: Mr. Hampton was seen and examined at the bedside. He is alert, oriented in all spheres. He denies any headache, dizziness, lightheadedness, blurred vision, diplopia, nausea, or vomiting. He is able to follow simple commands. He claims of seeing a psychiatrist yesterday due to hallucinations. There was no untoward events overnight. Objective - Vital Signs/Intake and Output Vital Signs (last 24 hours): Temp Pulse Resp BP Pulse Ox 98.1 F 75 20 128/83 95 07/18/17 23:35 07/19/17 05:44 07/18/17 23:35 07/19/17 05:44 07/18/17 23:35 Intake and Output: 07/18/17 07/19/17 18:59 06:59 Intake Total 500 840 Balance 500 840 - Medications Medications: Current Medications Acetaminophen (Tylenol 325mg Tab) 650 mg PO Q6 PRN PRN Reason: Pain, Mild (1-3) Last Admin: 07/18/17 14:21 Dose: 650 mg Aspirin (Ecotrin) 81 mg PO DAILY [facility] Last Admin: 07/18/17 09:58 Dose: 81 mg Clopidogrel Bisulfate (Plavix) 75 mg PO DAILY [facility] Last Admin: 07/18/17 09:58 Dose: 75 mg Dextrose (Dextrose 50% Inj) 0 ml IVP .STAT PRN; Protocol PRN Reason: Hypoglycemia Protocol Dextrose (Glutose 15) 0 gm PO .ONCE PRN; Protocol PRN Reason: Hypoglycemia Protocol Enoxaparin Sodium (Lovenox) 40 mg SC DAILY [facility] Last Admin: 07/18/17 09:58 Dose: 40 mg Glucagon (Glucagen Diagnostic Kit) 0 mg IM .STAT PRN; Protocol PRN Reason: Hypoglycemia Protocol Hydrochlorothiazide (Hydrodiuril) 25 mg PO DAILY [facility] Last Admin: 07/18/17 09:58 Dose: 25 mg Dextrose (Dextrose 5% In Water 1000 Ml) 1,000 mls @ 0 mls/hr IV .Q0M PRN; Protocol; Per Protocol PRN Reason: Hypoglycemia Protocol Insulin Aspart (Novolog) 0 unit SC ACHS [facility] PRN Reason: Protocol Last Admin: 07/18/17 21:24 Dose: Not Given Lisinopril (Zestril) 20 mg PO DAILY [facility] Last Admin: 07/18/17 09:58 Dose: 20 mg Lorazepam (Ativan) 1 mg IVP Q6H PRN PRN Reason: Agitation Rosuvastatin Calcium (Crestor) 5 mg PO HS [facility] Last Admin: 07/18/17 21:27 Dose: 5 mg - Labs Labs: 07/18/17 13:41 07/18/17 13:41 PT 11.3 SECONDS (9.7-12.2) 07/16/17 18:01 INR 1.0 07/16/17 18:01 APTT 31 SECONDS (21-34) 07/16/17 18:01 - Constitutional Appears: No Acute Distress - Head Exam Head Exam: NORMAL INSPECTION - Neurological Exam Neurological Exam: Alert, Awake, Oriented x3 Neuro motor strength exam: Left Upper Extremity: 5, Right Upper Extremity: 5, Left Lower Extremity: 5, Right Lower Extremity: 5 Additional comments: Neurological improved from previous examination. No more facial droop. Assessment and Plan (1) Ischemic stroke Assessment & Plan: Case discussed with Dr. Pa, continue all current medical regimen. May discharge to home pending primary clearance. Recommend to follow up with a neurologist 2 weeks post discharge. If patient would like to follow up with either Dr. Lang/Thierno at [address] [place] [address] [address]. [facility] [id number]. . Status: Acute
[2017-07-19 07:45] VITALS: RESP 18; TEMP 98.4; O2SAT 97
[2017-07-19] MEDS: (Novolog) Insulin Aspart, Recombinant 100 u/ml 10 ml vial SC SCH ×2 (08:22→11:41)
--- NOTE | 2017-07-19 08:27 | CARD ---
APPROVED REPORT EXAM: Two-dimensional echocardiogram with contrast and saline bubble. 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 There is normal left ventricular wall thickness. Left ventricle systolic function is normal. The Ejection Fraction is 60-65%. There is normal LV segmental wall motion. The left ventricular diastolic function is normal. No left ventricle thrombus noted on this study. RIGHT VENTRICLE The right ventricle is normal size. There is normal right ventricular wall thickness. The right ventricular systolic function is normal. ATRIA The left atrium size is normal. The right atrium size is normal. The interatrial septum is intact with no evidence for an atrial septal defect. AORTIC VALVE The aortic valve is normal in structure. No aortic regurgitation is present. There is no aortic valvular stenosis. MITRAL VALVE The mitral valve is normal in structure. There is no evidence of mitral valve prolapse. There is no mitral valve stenosis. Mitral regurgitation is trace. TRICUSPID VALVE The tricuspid valve is normal in structure. There is trace tricuspid regurgitation. Right ventricular systolic pressure is estimated at 30-40 mmHg. There is mild pulmonary hypertension. PULMONIC VALVE The pulmonic valve is not well visualized. There is no pulmonic valvular regurgitation. GREAT VESSELS The aortic root is normal in size. PERICARDIAL EFFUSION There is no significant pericardial effusion. <Conclusion> Left ventricle systolic function is normal. The Ejection Fraction is 60-65%. No left ventricle thrombus noted on this study. No aortic regurgitation is present. Mitral regurgitation is trace. There is trace tricuspid regurgitation. There is mild pulmonary hypertension. There is no pulmonic valvular regurgitation.
[2017-07-19 09:09] VITALS: BP 140/85; PULSE 77
[2017-07-19] MEDS: Enoxaparin 40 mg Syringe SC SCH (09:10)
[2017-07-19 11:10] LABS: BASO # 0.1 K/uL (0.0-0.2); BASO % 0.9 % (0.0-2.0); EOS % 0.8 % (0.0-4.0); HEMOGLOBIN 14.9 g/dL (12.0-18.0); LYMPH # 1.5 K/uL (1.0-4.3); LYMPH % 23.1 % (20.0-40.0); MEAN CELL VOLUME 81.7 fL (80.0-94.0); MEAN CORPUSCULAR HEMOGLOBIN 27.7 pg (27.0-31.0); MEAN CORPUSCULAR HGB CONC 33.9 g/dL (33.0-37.0); MEAN PLATELET VOLUME 8.1 fL (7.2-11.7); MONO # 0.6 K/uL (0.0-0.8); NEUT # 4.2 K/uL (1.8-7.0); NEUT % 66.2 % (50.0-75.0); RBC 5.37 Mil/uL (4.40-5.90); RED CELL DISTRIBUTION WIDTH 13.1 % (11.5-14.5); WHITE BLOOD COUNT 6.3 K/uL (4.8-10.8)
--- NOTE | 2017-07-19 11:33 | CP.PCM.PN ---
Subjective - Date & Time of Evaluation Date of Evaluation: 07/19/17 Time of Evaluation: 09:20 - Subjective Subjective: Medicine progress note for Dr. Connelly's service Patient seen and examined. Patient states he feels well and that headache is improving. Patient states he is amenable towards rehab but on later interview patient refusing. No additional events of hallucinations or agitation overnight per nursing. Objective - Vital Signs/Intake and Output Vital Signs (last 24 hours): Temp Pulse Resp BP Pulse Ox 98.4 F 77 18 140/85 97 07/19/17 07:05 07/19/17 09:08 07/19/17 07:05 07/19/17 09:08 07/19/17 07:05 Intake and Output: 07/19/17 07/19/17 06:59 18:59 Intake Total 840 Balance 840 - Medications Medications: Current Medications Acetaminophen (Tylenol 325mg Tab) 650 mg PO Q6 PRN PRN Reason: Pain, Mild (1-3) Last Admin: 07/19/17 09:09 Dose: 650 mg Aspirin (Ecotrin) 81 mg PO DAILY [facility] Last Admin: 07/19/17 09:09 Dose: 81 mg Clopidogrel Bisulfate (Plavix) 75 mg PO DAILY [facility] Last Admin: 07/19/17 09:09 Dose: 75 mg Dextrose (Dextrose 50% Inj) 0 ml IVP .STAT PRN; Protocol PRN Reason: Hypoglycemia Protocol Dextrose (Glutose 15) 0 gm PO .ONCE PRN; Protocol PRN Reason: Hypoglycemia Protocol Enoxaparin Sodium (Lovenox) 40 mg SC DAILY [facility] Last Admin: 07/19/17 09:10 Dose: 40 mg Glucagon (Glucagen Diagnostic Kit) 0 mg IM .STAT PRN; Protocol PRN Reason: Hypoglycemia Protocol Hydrochlorothiazide (Hydrodiuril) 25 mg PO DAILY [facility] Last Admin: 07/19/17 09:09 Dose: 25 mg Dextrose (Dextrose 5% In Water 1000 Ml) 1,000 mls @ 0 mls/hr IV .Q0M PRN; Protocol; Per Protocol PRN Reason: Hypoglycemia Protocol Insulin Aspart (Novolog) 0 unit SC ACHS [facility] PRN Reason: Protocol Last Admin: 07/19/17 08:22 Dose: Not Given Lisinopril (Zestril) 20 mg PO DAILY [facility] Last Admin: 07/19/17 09:09 Dose: 20 mg Lorazepam (Ativan) 1 mg IVP Q6H PRN PRN Reason: Agitation Rosuvastatin Calcium (Crestor) 5 mg PO HS JAEL Last Admin: 07/18/17 21:27 Dose: 5 mg - Labs Labs: 07/19/17 11:02 07/18/17 13:41 PT 11.3 SECONDS (9.7-12.2) 07/16/17 18:01 INR 1.0 07/16/17 18:01 APTT 31 SECONDS (21-34) 07/16/17 18:01 - Constitutional Appears: No Acute Distress - Head Exam Head Exam: ATRAUMATIC, NORMOCEPHALIC - Eye Exam Eye Exam: EOMI - ENT Exam ENT Exam: Mucous Membranes Moist - Respiratory Exam Respiratory Exam: Clear to Ausculation Bilateral - Cardiovascular Exam Cardiovascular Exam: +S1, +S2 - GI/Abdominal Exam GI & Abdominal Exam: Soft, Normal Bowel Sounds. absent: Tenderness - Extremities Exam Extremities Exam: Normal Inspection - Neurological Exam Neurological Exam: Alert, Awake, CN II-XII Intact Additional comments: left visual landeros hemianopia by confrontation - Psychiatric Exam Psychiatric exam: Normal Affect - Skin Skin Exam: Warm Assessment and Plan - Assessment and Plan (Free Text) Assessment: 1. Right Subacute [employer] Infarct Dr. Pa, neurology, consulted- help appreciated recommend MRI brain, hypercoaguable workup, PT, asa 325mg, BP control CT head: No acute intracranial findings. Subacute infarction of the right [employer]ATE territory, no hemorrhagic. transformation. 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 No carotid stenosis or occlusion. No thrombosis. Basilar artery and. vertebral arteries appear unremarkable. No aneurysm or acute occlusion. Partial thrombus or narrowing associate with the right proximal. [employer]ATE territory. Subacute infarction without hemorrhagic transformation right FINANCE ASS[employer]ATE territory. Chronic infarct of the right hemisphere frontal region as above. (see full report) Lipid panel: Triglycerides 86, Cholesterol 130, LDL 79, HDL 35 Patient on crestor 10mg PO HS, aspirin 325mg carotid duplex not suggestive of significant stenosis of either carotid artery echo with bubble study:LV systolic function normal, EF 60-65%, no aortic regurg , trace mitral regurg, trace tricuspid regurg, mild pulm HTN. (see full report) Per neuro: May discharge to home pending primary clearance. Recommend to follow up with a neurologist 2 weeks post discharge. If patient would like to follow up with either Dr. Lang/Thierno at [address]. [facility] [id number]. . 2. Paranoia/Agitation Pt admits hearing voices in hallway conspiring against him Denies history of psych medication, but admits seeing mental health counselors Psych consult, Dr. Redd patient has capacity for decision making. patient refusing medication at this time. Ativan 1mg IV Q6H PRN for agitation 3. HTN patient on lisinopril 20mg, HCTZ 25mg will continue to monitor and adjust medication if necessary 4/4: Pt with HTN episode this afternoon; 180/110 - given stat Hydralazine 25mg PO ONCE - if persistently elevated, will consider increasing meds 4. Diabetes A1c 7.9 patient takes metformin 1000mg PO BID- held due to IV contrast ISS accuchecks achs hypoglycemia protocol 5. Prophylactic measure SCDs lovenox 40mg SC daily PT- recommend acute rehab All medical management as per Dr. Connelly Patient is stable for discharge home with physical therapy per Dr. Connelly. Patient will need to follow up with Dr. Connelly within one week of discharge. Patient should follow up with either Dr. Pa or Dr. Lang, neurology, within the next two weeks at at [address]. [facility] [id number]. . Patient should resume home medication metformin and lisinopril/ HCTZ with new medications plavix 75mg and rosouvastatin 5mg. Patient should return to the ED if symptoms reoccur or worsen.
[2017-07-19 11:42] LABS: ALB/GLOB RATIO 1.1 (1.0-2.1); ALBUMIN 4.1 g/dL (3.5-5.0); ALT/SGPT 16 U/L (21-72); AST/SGOT 23 U/L (17-59); BLOOD UREA NITROGEN 18 mg/dL (9-20); CALCIUM 9.3 mg/dl (8.6-10.4); GFR AFRICAN-AMERICAN > 60; GFR NON-AFRICAN AMERICAN 51
[2017-07-21 20:59] LABS: B2 GLYCOPROTEIN I AB(IGA) <9 SAU (<=20); B2 GLYCOPROTEIN I AB(IGG) <9 SGU (<=20); B2 GLYCOPROTEIN I AB(IGM) <9 SMU (<=20)
[2017-07-22 00:28] LABS: CARDIOLIPIN AB (IGA) <11 APL (<=11); CARDIOLIPIN AB (IGG) <14 GPL (<=14); CARDIOLIPIN AB (IGM) <12 MPL (<=12)
[2017-07-22 05:49] LABS: PHOSPHATIDYLSERINE AB IGA <20 U/mL (<20); PHOSPHATIDYLSERINE AB IGG <10 U/mL (<10); PHOSPHATIDYLSERINE AB IGM <25 U/mL (<25)
--- NOTE | 2017-07-27 10:05 | DS ---
DATE: The patient was admitted to the hospital with a chief complaint of weakness, fatigue, tiredness. Patient came to the ER, advised admission. Patient get bed rest, supportive care. Patient showed improvement. Discharged to be followed up as outpatient. Jair Connelly MD
== END 2017-07-19 15:37 | disposition home or self-care (01) | DRG 464 ==
LOC: C.ER 17:36 → C.9E 20:06 → C.6T 21:19
PROVIDERS: ADMIT Internal Medicine Pulmonary Disease; ATTEND Internal Medicine Pulmonary Disease
DX: R53.1 Weakness (principal); E11.9 Type 2 diabetes mellitus without complications; I10 Essential (primary) hypertension; F17.210 Nicotine dependence, cigarettes, uncomplicated; F22 Delusional disorders; H54.7 Unspecified visual loss